=== PATIENT | male | born 1965 | race Two or more races ===

== ENCOUNTER 2017-08-05 10:08 | Emergency (ER) | payer OTHER ==
[~2017-08-05] VITALS: Ht 182.9 cm; Wt 108.9 kg
[2017-08-05 11:05] VITALS: BP 151/84
[2017-08-05] MEDS ORDERED: methylPREDNISolone SOD SUCC 125 MG/2 ML VL IM ONE (11:45)
[2017-08-05] MEDS ORDERED: cefTRIAXone SOD 1,000 MG VL IM ONE (11:45)
== END 2017-08-05 12:22 | disposition home or self-care (01) ==
LOC: ER 10:08
DX: J03.90 Acute tonsillitis, unspecified (principal); H66.91 Otitis media, unspecified, right ear; Z88.0 Allergy status to penicillin
CPT/HCPCS: 96372; 99284; J0696; J2930

== ENCOUNTER 2023-06-29 15:14 | Emergency (ER) | payer BC, OTHER ==
[~2023-06-29] VITALS: Ht 162.6 cm; Wt 112.0 kg
[2023-06-29 15:37] VITALS: BP 102/72; PULSE 140; RESP 18; O2SAT 95
[2023-06-29] MEDS ORDERED: DICL75TA2 PO (17:14)
[2023-06-29] MEDS ORDERED: KETOROLAC TROMETH 30 MG/ML 1ML VIAL IM ONE (17:15)
== END 2023-06-29 18:25 | disposition home or self-care (01) ==
LOC: ER 15:14
DX: S83.8X2A Sprain of other specified parts of left knee, initial encounter (principal); Z88.0 Allergy status to penicillin; Y93.A3 Activity, aerobic and step exercise; Y93.89 Activity, other specified; Y92.89 Other specified places as the place of occurrence of the external cause; Y99.8 Other external cause status
CPT/HCPCS: 73562; 96372; 99283; J1885